=== PATIENT | male | born 1965 | race Caucasian/White ===

== ENCOUNTER 2017-10-30 08:47 | Outpatient (CLI) | payer BC | END 2017-10-30 08:48 | disposition home or self-care (01) | LOC: BICULT 08:47 | PROVIDERS: ATTEND Psychiatry & Neurology Psychiatry | DX: K76.0 Fatty (change of) liver, not elsewhere classified (principal); R79.89 Other specified abnormal findings of blood chemistry; N28.1 Cyst of kidney, acquired | CPT/HCPCS: 76700 ==